=== PATIENT | female | born 2000 | race Caucasian/White ===

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

== ENCOUNTER 2019-04-22 14:50 | Emergency (ER) | payer OTHER ==
[2019-04-22 15:00] VITALS: BP 129/65
--- NOTE | 2019-04-22 15:13 | UC ---
General HPI - HPI Summary HPI Summary: Patient is 18 all female who presents to urgent care with 4-5 days of progressive lower abdominal cramping, nausea, feeling weak and lightheaded. Patient states she's had some nausea but no vomiting. Patient states she's been able to eat and drink but doesn't have much appetite. No dysuria, vaginal discharge, odor or any leaking. Patient denies any back pain. No fevers or chills. No trauma. Patient has not had any imaging or evaluation of this . Patient scheduled to see NUTRITION COORDINATOR and 05/02/19. Patient states her last period was some time after February 04 but is not exactly sure. Patient is a will this puts her somewhere between 7-9 weeks. Patient states today she touches the past surgical resolved.. Patient is taking vitamins. Other medications reviewed this visit - History of Current Complaint Chief Complaint: UCGeneralIllness Stated Complaint: DIZZY,SHAKY Time Seen by Provider: 04/22/19 15:03 Hx Obtained From: Patient Hx Last Menstrual Period: 02/09/19 Pain Intensity: 5 - Allergy/Home Medications Allergies/Adverse Reactions: Allergies Allergy/AdvReac Type Severity Reaction Status Date / Time amoxicillin [From Augmentin] Allergy Hives Verified 04/22/19 14:53 clavulanic acid Allergy Hives Verified 04/22/19 14:53 [From Augmentin] PMH/Surg Hx/FS Hx/Imm Hx Previously Healthy: Yes - Surgical History Surgical History: None - Family History Known Family History: Positive: Diabetes, Non-Contributory - Social History Occupation: Unemployed Lives: With Family Alcohol Use: None Substance Use Type: None Smoking Status (MU): Never Smoked Tobacco Review of Systems All Other Systems Reviewed And Are Negative: Yes Constitutional: Positive: Fatigue, Other - lightheaded Eyes: Positive: Negative ENT: Positive: Negative Respiratory: Positive: Negative Cardiovascular: Positive: Negative Gastrointestinal: Positive: Abdominal Pain, Nausea Genitourinary: Positive: Negative. Negative: Dysuria, Vaginal/Penile Discharge Motor: Positive: Negative Neurovascular: Positive: Negative Musculoskeletal: Positive: Negative Physical Exam - Summary Physical Exam Summary: Vital Signs Reviewed: Yes A+Ox3, no distress Eyes: Conjunctiva Clear, KENNEY. EOM intact and full ENT: Hearing grossly normal TM x 2 clear, mmpasty, uvula midline, no exudate, no erythema Neck: Positive: Supple Respiratory: Positive: No respiratory distress, No accessory muscle use + CTA throughout no w/r Cardiovascular: RRR nl s1, s2 no m/r CBT <2 sec abd soft + BS no guarding, distension,diffuse tenderenss with increased R>L LQ Musculoskeletal Exam: SANCHEZ x 4 without difficulty Strength Intact, ROM Intact Neurological: Positive: Alert, + sensation throughout Psychological: Positive: Normal Response To final inspector paper Skin: Positive: no rash, no ecchymosis Triage Information Reviewed: Yes Vital Signs: Initial Vital Signs Temp 98.3 F 04/22/19 14:54 Pulse 88 04/22/19 14:54 Resp 16 04/22/19 14:54 BP 129/65 04/22/19 14:54 Pulse Ox 100 04/22/19 14:54 Diagnostics - EKG Cardiac Rate: NL Cardiac Rhythm: Sinus: Normal Ectopy: None ST Segment: Normal Course/Dx - Course Course Of Treatment: Patient presents to urgent care reporting 3-4 days of progressive lower belly pain., Nausea, lightheadedness, during which is up-to-date. Patient states lower belly pain is crampy and sharp intermittently. No vaginal discharge or itching. Patient is . Patient states her period was sometime after the first week of March which makes her somewhere between 7-9 weeks . Patient has not had any NUTRITION COORDINATOR care today but has appointment scheduled in approximately 10 days. EKG is non-concerning. Patient's blood sugars greater than 100. Patient's urine does not show infection or ketones positive test. Differential is wide but does include ectopic. Recommend patient was department for further evaluation testing. Patient is in agreement with plan. Spoke to Jose Gomez, nurse practitioner in the emergency department who is aware patient regarding vehicle. Patient okay to go by private vehicle - Diagnoses Provider Diagnosis: Abdominal pain during Discharge - Sign-Out/Discharge Documenting (check all that apply): Patient Departure All imaging exams completed and their final reports reviewed: No Studies - Discharge Plan Condition: Stable Disposition: HOME-RECOMMEND TO ED Patient Education Materials: Abdominal Pain in (ED) Referrals: Maranda Sutherland MD [Primary Care Provider] - Additional Instructions: The doctor that evaluated you today thinks that you need additional testing that can be completed the emergency department. It is recommended that you go directly to emergency department for further evaluation. This evaluation may include blood work or imaging. This testing will be directed and decided by the provider that evaluate you at the emergency department. If pain becomes worse, you feel lightheaded, you have uncontrolled vomiting, or you have any other concerns while you are being driven to emergency department as recommended to pullover and contact 911. - Billing Disposition and Condition Condition: STABLE Disposition: Home-Recommend to ED
--- NOTE | 2019-04-27 07:55 | UC ---
- Progress Note Progress Note: Please disregard this sentence in HPI - dictated in error: Patient states today she touches the past surgical resolved. Course/Dx - Diagnoses Provider Diagnoses: Abdominal pain during Discharge ED - Sign-Out/Discharge Documenting (check all that apply): Post-Discharge Follow Up All imaging exams completed and their final reports reviewed: No Studies - Discharge Plan Condition: Stable Disposition: HOME-RECOMMEND TO ED Patient Education Materials: Abdominal Pain in (ED) Referrals: Maranda Sutherland MD [Primary Care Provider] - Additional Instructions: The doctor that evaluated you today thinks that you need additional testing that can be completed the emergency department. It is recommended that you go directly to emergency department for further evaluation. This evaluation may include blood work or imaging. This testing will be directed and decided by the provider that evaluate you at the emergency department. If pain becomes worse, you feel lightheaded, you have uncontrolled vomiting, or you have any other concerns while you are being driven to emergency department as recommended to pullover and contact 911. - Billing Disposition and Condition Condition: STABLE Disposition: Home-Recommend to ED
== END 2019-04-22 15:44 | disposition home health service (06) ==
LOC: UCCORT 14:50
DX: R10.30 Lower abdominal pain, unspecified (principal); O26.891 Other specified pregnancy related conditions, first trimester; Z3A.00 Weeks of gestation of pregnancy not specified; R10.9 Unspecified abdominal pain
CPT/HCPCS: 81003; 84702; 87086; 93005; 99212; G0463